=== PATIENT | female | born 1935 | race Two or more races ===

== ENCOUNTER 2023-07-02 06:01 | Day surgery (SDC) | payer OTHER ==
[2023-06-27 08:45] LABS: PH,URINE 5.5 (5.0-8.0); URINE APPEARANCE Clear; URINE BILIRRUBIN Negative (NEGATIVE); URINE BLOOD Negative; URINE COLOR Yellow; URINE GLUCOSE Negative (NEGATIVE); URINE LEUKOCYTE Negative; URINE NITRATE Negative; URINE PROTEIN Negative (NEGATIVE); URINE UROBILINOGEN 0.2 E.U./dl
[2023-06-27 08:47] LABS: URINE BACTERIA 31.4 uL (0.0-1933); URINE EPITHELIAL CELLS 2.4 uL (0.0-38.8); URINE WBC 3.2 uL (0.0-23.2)
[2023-06-27 08:48] LABS: HEMATOCRIT 45.3 % (36.0-45.00); HEMOGLOBIN 15.3 g/dL (12.0-15.00); MEAN CORPUSCULAR HGB CONC 33.7 g/dl (32.0-36.0); PLATELET COUNT 234 K/uL (150-450); RED BLOOD COUNT 4.93 M/uL (4.00-6.00); RED CELL DISTRIBUTION WIDTH 13.3 % (11.5-14.5)
[2023-06-27 08:56] LABS: URINE RBC 0.8 uL (0.0-20.8)
[2023-06-27 09:20] LABS: INR 1.02; PARTIAL THROMBOPLASTIN TIME 31.3 SECONDS (22.0-34.0); PROTHROMBIN TIME 10.7 SECONDS (9.0-11.5)
[2023-06-27 10:02] LABS: ALBUMIN 3.6 gm/dL (3.4-5.0); BILIRUBIN TOTAL 0.65 mg/dL (0.3-1.2); CALCIUM 9.1 mg/dL (8.5-10.1); CREATININE SERUM 0.91 mg/dL (0.55-1.02); GFR 58.34; GLOBULINA 4.3 G/DL (2.4-3.5); POTASSIUM 3.73 mEq/L (3.5-5.1); TOTAL PROTEIN 7.9 gm/dL (6.4-8.2); TSH 3.99 uIU/mL (0.358-3.74)
[~2023-07-02] VITALS: Ht 147.3 cm; Wt 49.0 kg
[~2023-07-02 06:01] MED LIST: ALPRAZOLAM ODT0.5 MG PO; ALPRAZOLAM XR0.5 MG PO; AMLO PO; CALCIUM + D T1 UDTAB PO; LEVOTHYROXINE25 MCG PO; PEPCID PO; PRILOSEC20 MG PO; TOPROL XL25 MG PO; ZIAC 2.5-6.251 EACH PO; ZIAC 5-6.25 MG1 EACH PO
== END 2023-07-02 13:40 | disposition home or self-care (01) ==
LOC: CIR.AMB 06:01
PROVIDERS: ATTEND Colon & Rectal Surgery
DX: R15.9 Full incontinence of feces (principal); R32 Unspecified urinary incontinence; K62.5 Hemorrhage of anus and rectum; N39.0 Urinary tract infection, site not specified; Z88.6 Allergy status to analgesic agent
CPT/HCPCS: 64581; 95971; C1778

== ENCOUNTER 2023-07-16 06:33 | Day surgery (SDC) | payer OTHER ==
[~2023-07-16 06:33] MED LIST changes: +LUMIGAN2.5 M1 OP; +NORVASC5 MG PO
== END 2023-07-16 12:10 | disposition home or self-care (01) ==
LOC: CIR.AMB 06:33
PROVIDERS: ATTEND Colon & Rectal Surgery
DX: R15.9 Full incontinence of feces (principal); R32 Unspecified urinary incontinence; Z20.822 Contact with and (suspected) exposure to COVID-19; Z88.6 Allergy status to analgesic agent; Z88.8 Allergy status to other drugs, medicaments and biological substances; E03.9 Hypothyroidism, unspecified
CPT/HCPCS: 64590; 95971; C1767